=== PATIENT | female | born 1940 | race Caucasian/White ===

== ENCOUNTER 2017-02-18 15:32 | Emergency (ER) | payer BC ==
[2017-02-18] MEDS ORDERED: METHYLPREDNISOLONE 80MG/VIAL IM ONE (16:10)
[2017-02-18] MEDS ORDERED: DIPHENHYDRAMINE HCL IV 50 MG/ML VIAL IM ONE (16:10)
--- NOTE | 2017-02-18 16:17 | Emergency Department Record ---
History of Present Illness - General Chief complaint: Bite Insect/other Stated complaint: BEE STING Source: Patient, RN notes reviewed - History of Present Illness Initial comments: wasp sting to the leg redness at site and hives. No stinger throat clear and no wheezing and BP is good - Related Data Home Medications Medication Instructions Recorded Confirmed Last Taken Glipizide/Metformin HCl 1 tab PO ASDIR 90 Days 01/11/17 02/18/17 02/18/17 [Glipizide-Metformin 2.5-500 Mg] Lisinopril/Hydrochlorothiazide 1 tab PO DAILY 90 Days 01/11/17 02/18/17 02/18/17 [Lisinopril-Hctz 10-12.5 Mg Tab] Metoprolol Tartrate 100 mg PO ASDIR 90 Days 01/11/17 02/18/17 02/18/17 Simvastatin 80 g PO DAILY 90 Days 01/11/17 02/18/17 02/18/17 Sitagliptin Phosphate [Januvia] 100 mg PO ASDIR 30 Days 01/11/17 02/18/17 Previous Rx's Medication Instructions Recorded Prednisone [Prednisone 10Mg] 10 mg PO BID #10 tab 02/18/17 Allergies Allergy/AdvReac Type Severity Reaction Status Date / Time chlorzoxazone Allergy numbness Verified 02/18/17 16:09 [From Parafon Forte] codeine Allergy ANAPHYLAXIS Verified 02/18/17 16:09 hydroxyzine HCl Allergy low blood Verified 02/18/17 16:09 [From Vistaril] pressure hydroxyzine pamoate Allergy low blood Verified 02/18/17 16:09 [From Vistaril] pressure meperidine HCl [From Demerol] Allergy PT UNSURE Verified 02/18/17 16:09 OF REACTION morphine Allergy ANAPHYLAXIS Verified 02/18/17 16:09 Review of Systems Reviewed: No additional complaints except as noted below Constitutional: Reports: As per HPI. Denies: Chills, Fever, Malaise, Night sweats, Weakness, Weight change Eyes: Reports: As per HPI. Denies: Eye discharge, Eye pain, Photophobia, Vision change ENT: Reports: As per HPI. Denies: Congestion, Dental pain, Ear pain, Epistaxis , Hearing loss, Throat pain Respiratory: Reports: As per HPI. Denies: Cough, Dyspnea, Hemoptysis, Stridor, Wheezes Cardiovascular: Reports: As per HPI. Denies: Arrhythmia, Chest pain, Dyspnea on exertion, Edema, Murmurs, Orthopnea, Palpitations, Paroxysmal nocturnal dyspnea, Rheumatic Fever, Syncope Endocrine: Reports: As per HPI. Denies: Fatigue, Heat or cold intolerance, Polydipsia, Polyuria Gastrointestinal: Reports: As per HPI. Denies: Abdominal pain, Constipation, Diarrhea, Hematemesis, Hematochezia, Melena, Nausea, Vomiting Genitourinary: Reports: As per HPI. Denies: Abnormal menses, Discharge, Dyspareunia, Dysuria, Frequency, Hematuria, Incontinence, Retention, Urgency Musculoskeletal: Reports: As per HPI. Denies: Arthralgia, Back pain, Gout, Joint swelling, Myalgia, Neck pain Skin: Reports: As per HPI. Denies: Bruising, Change in color, Change in hair/ nails, Lesions, Pruritus, Rash Neurological: Reports: As per HPI. Denies: Abnormal gait, Confusion, Headache, Numbness, Paresthesias, Seizure, Tingling, Tremors, Vertigo, Weakness Psychiatric: Reports: As per HPI. Denies: Anxiety, Auditory hallucinations, Depression, Homicidal thoughts, Suicidal thoughts, Visual hallucinations Hematological/Lymphatic: Reports: As per HPI. Denies: Anemia, Blood Clots, Easy bleeding, Easy bruising, Swollen glands Physical Exam - General General Appearance: Alert, Oriented x3, Cooperative, No acute distress - Head Head exam: Normal inspection - Eye Eye exam: Normal appearance, PERRL Pupils: Normal accommodation - ENT ENT exam: Normal exam, Mucous membranes moist, Normal external ear exam, Normal orophraynx, TM's normal bilaterally Ear exam: Normal external inspection. negative: External canal tenderness Nasal Exam: Normal inspection. negative: Discharge, Sinus tenderness Mouth exam: Normal external inspection, Tongue normal Teeth exam: Normal inspection. negative: Dental caries Throat exam: Normal inspection. negative: Tonsillar erythema, Tonsillar exudate - Neck Neck exam: Normal inspection, Full ROM. negative: Tenderness - Respiratory Respiratory exam: Normal lung sounds bilaterally. negative: Respiratory distress - Cardiovascular Cardiovascular Exam: Regular rate, Normal rhythm, Normal heart sounds - GI/Abdominal GI/Abdominal exam: Soft, Normal bowel sounds. negative: Tenderness - Rectal Rectal exam: Deferred - exam: Deferred - Extremities Extremities exam: Normal inspection, Full ROM, Normal capillary refill, Other ( redness around the bite in leg). negative: Tenderness - Back Back exam: Reports: Normal inspection, Full ROM. Denies: Muscle spasm, Rash noted, Tenderness - Neurological Neurological exam: Alert, Normal gait, Oriented X3, Reflexes normal - Psychiatric Psychiatric exam: Normal affect, Normal mood - Skin Skin exam: Rash, Other (hives) Course Vital Signs 02/18/17 15:41 Temperature 98.1 F Pulse Rate [ 74 Pulse Ox Probe] Respiratory 16 Rate Blood Pressure 146/73 [Left Arm] Pulse Ox 96 Disposition Clinical Impression: Bee sting Qualifiers: Encounter type: initial encounter Injury intent: accidental or unintentional Qualified Code(s): T63.441A - Toxic effect of venom of bees, accidental ( unintentional), initial encounter Disposition: Home, Self-Care Condition: (1) Good Instructions: Insect Bite or Sting (ED) Additional Instructions: follow up with family in 3 -4 days benadryl one to two pills OTC every 6 hours Prescriptions: Prednisone [Prednisone 10Mg] 10 mg PO BID #10 tab Forms: Patient Portal Access Time of Disposition: 16:17 Quality - Quality Measures Quality Measures: N/A - Blood Pressure Screening Does Patient Have Any of the Following: No Blood Pressure Classification: Hypertensive Reading Systolic Measurement: 146 Diastolic Measurement: 73 Screening for High Blood Pressure: < First Hypertensive BP, F/U Documented > [ [id number]] First Hypertensive Follow-up Interventions: Referral to alternative/primary care provider.
== END 2017-02-18 16:38 | disposition home or self-care (01) ==
LOC: ER 15:32
DX: T63.461A Toxic effect of venom of wasps, accidental (unintentional), initial encounter (principal); L50.0 Allergic urticaria
CPT/HCPCS: 96372; 99283; J1040; J1200

== ENCOUNTER 2019-08-21 09:19 | Emergency (ER) | payer BC ==
[2019-08-21] MEDS ORDERED: KETOROLAC 30 MG/ML VIAL IM ONE (09:54)
[2019-08-21] MEDS ORDERED: HYDROMORPHONE HCL 2 MG/ML VIAL IM ONE (09:54)
[2019-08-21] MEDS ORDERED: DIAZEPAM 5 MG TABLET PO ONE (10:50)
--- NOTE | 2019-08-21 11:09 | Emergency Department Record ---
History of Present Illness - General Chief complaint: Lower Extremity Pain Stated complaint: RIGHT UPPER LEG PAIN Time Seen by Provider: 08/21/19 09:30 Source: Patient Mode of Arrival: Ambulatory Limitations: No limitations - History of Present Illness Initial comments: pt has back pain that radiates into her hip. she has had this before. she has had back surgery. she has no numbness and no problems with bowel or bladder. she has never had an mri but she did have a ct and doppler of her back and leg for the same symptoms 2 1/2 months ago at [facility]. Complaint: Extremity pain, Other Onset/Timin -: Hour(s) Location: Right Quality: Burning, Stabbing, Other Consistency: Constant Improves with: Nothing Worsens with: Nothing Associated Symptoms: Denies other symptoms - Related Data Previous Rx's Medication Instructions Recorded Diazepam [Valium] 2 mg PO TID #7 tab 08/21/19 Hydrocodone/Acetaminophen [[place] 0.5 tab PO Q8H PRN #7 tab 08/21/19 5mg/325mg] Allergies Allergy/AdvReac Type Severity Reaction Status Date / Time chlorzoxazone Allergy numbness Verified 02/18/17 16:09 [From Parafon Forte] codeine Allergy ANAPHYLAXIS Verified 02/18/17 16:09 hydroxyzine HCl Allergy low blood Verified 02/18/17 16:09 [From Vistaril] pressure hydroxyzine pamoate Allergy low blood Verified 02/18/17 16:09 [From Vistaril] pressure meperidine HCl [From Demerol] Allergy PT UNSURE Verified 02/18/17 16:09 OF REACTION morphine Allergy ANAPHYLAXIS Verified 02/18/17 16:09 Travel/Exposure Screening - Travel/Exposure Within Last 30 Days Have you traveled within the last 30 days?: No - Travel/Exposure Within Last Year Have you traveled outside the [place] in the last year?: No - Additonal Travel/Exposure Details Have you been exposed to anyone with a communicable illness?: No Review of Systems Reviewed: No additional complaints except as noted below Constitutional: Reports: As per HPI. Denies: Chills, Fever, Malaise, Weakness, Weight change Eyes: Reports: As per HPI. Denies: Eye discharge, Eye pain, Vision change ENT: Reports: As per HPI. Denies: Congestion, Dental pain, Ear pain, Epistaxis, Hearing loss, Throat pain Respiratory: Reports: As per HPI. Denies: Cough, Dyspnea, Hemoptysis, Wheezes Cardiovascular: Reports: As per HPI. Denies: Arrhythmia, Chest pain, Dyspnea on exertion, Edema, Murmurs, Orthopnea, Palpitations, Paroxysmal nocturnal dyspnea, Syncope Endocrine: Reports: As per HPI. Denies: Fatigue, Heat or cold intolerance, Polydipsia, Polyuria Gastrointestinal: Reports: As per HPI. Denies: Abdominal pain, Constipation, Diarrhea, Hematemesis, Hematochezia, Melena, Nausea, Vomiting Genitourinary: Reports: As per HPI. Denies: Abnormal menses, Discharge, Dyspareunia, Dysuria, Frequency, Hematuria, Incontinence, Retention, Urgency Musculoskeletal: Reports: As per HPI, Back pain. Denies: Arthralgia, Joint swelling, Myalgia, Neck pain Skin: Reports: As per HPI. Denies: Bruising, Change in color, Change in hair/nails, Lesions, Pruritus, Rash Neurological: Reports: As per HPI. Denies: Abnormal gait, Confusion, Headache, Numbness, Paresthesias, Seizure, Tingling, Tremors, Vertigo, Weakness Psychiatric: Reports: As per HPI. Denies: Anxiety, Auditory hallucinations, Depression, Homicidal thoughts, Suicidal thoughts, Visual hallucinations Hematological/Lymphatic: Reports: As per HPI. Denies: Anemia, Blood Clots, Easy bleeding, Easy bruising, Swollen glands Past Medical History - SOCIAL HISTORY Smoking Status: Never smoker Alcohol Use: None Drug Use: None - RESPIRATORY Hx Respiratory Disorders: No - CARDIOVASCULAR Hx Cardio Disorders: Yes Hx Hypertension: Yes - NEURO Hx Neuro Disorders: No - GI Hx GI Disorders: Yes Hx Reflux: Yes - Hx Genitourinary Disorders: No - ENDOCRINE Hx Endocrine Disorders: Yes Hx Diabetes: Yes - PSYCH Hx Psych Problems: No - HEMATOLOGY/ONCOLOGY Hx Hematology/Oncology Disorders: Yes Hx Cancer: Yes Comment:: melanoma Family Medical History Any Significant Family History?: No Hx Cancer: Father, Mother Hx Heart Disease: Father, Mother Physical Exam - General General Appearance: Alert, Oriented x3, Cooperative, Mild distress - Head Head exam: Normal inspection - Eye Eye exam: Normal appearance, PERRL, EOMI Pupils: Normal accommodation - ENT ENT exam: Normal exam, Mucous membranes moist, Normal external ear exam, Normal orophraynx Ear exam: Normal external inspection. negative: External canal tenderness Nasal Exam: Normal inspection. negative: Discharge, Sinus tenderness Mouth exam: Normal external inspection, Tongue normal Teeth exam: Normal inspection. negative: Dental caries Throat exam: Normal inspection. negative: Tonsillar erythema, Tonsillar exudate - Neck Neck exam: Normal inspection, Full ROM. negative: Tenderness - Respiratory Respiratory exam: Normal lung sounds bilaterally. negative: Respiratory distress - Cardiovascular Cardiovascular Exam: Regular rate, Normal rhythm, Normal heart sounds - GI/Abdominal GI/Abdominal exam: Soft, Normal bowel sounds. negative: Tenderness - Rectal Rectal exam: Deferred - exam: Deferred - Extremities Extremities exam: Normal inspection, Full ROM, Normal capillary refill. negative: Tenderness - Back Back exam: Reports: Muscle spasm, Paraspinal tenderness. Denies: Full ROM, Rash noted, Tenderness - Neurological Neurological exam: Alert, CN II-XII intact, Normal gait, Oriented X3 - Psychiatric Psychiatric exam: Normal affect, Normal mood - Skin Skin exam: Dry, Intact, Normal color, Warm Course Vital Signs 08/21/19 09:25 Temperature 98.1 F Pulse Rate 72 Respiratory 16 Rate Blood Pressure 191/101 Pulse Ox 98 - Reevaluation(s) Reevaluation #1: 08/21/19 11:30 pt feels better and states the valium helped the most Disposition Disposition: Discharge Clinical Impression: Lumbar radiculopathy, acute Disposition: Home, Self-Care Condition: (1) Good Instructions: Lumbar Radiculopathy (ED) Additional Instructions: follow up with family doctor this week. return sooner if worse. no lifting greater then 5lbs for 5 days. Prescriptions: Hydrocodone/Acetaminophen [[place] 5mg/325mg] 0.5 tab PO Q8H PRN #7 tab PRN Reason: Pain - General Diazepam [Valium] 2 mg PO TID #7 tab Forms: Patient Portal Access Quality - Quality Measures Quality Measures: N/A - Blood Pressure Screening Does Patient Have Any of the Following: Active Dx of HTN Blood Pressure Classification: Hypertensive Reading Systolic Measurement: 191 Diastolic Measurement: 101 Screening for High Blood Pressure: Patient Exclusion, Hx of HTN [[id number]]
== END 2019-08-21 11:51 | disposition home or self-care (01) ==
LOC: ER 09:19
DX: M54.16 Radiculopathy, lumbar region (principal); I10 Essential (primary) hypertension; E11.9 Type 2 diabetes mellitus without complications
CPT/HCPCS: 80048; 80061; 82306; 82947; 83036; 84450; 84460; 96372; 99284; J1885